=== PATIENT | female | born 1995 | race African-American/Black ===

== ENCOUNTER 2020-03-09 11:33 | Emergency (ER) | payer SELFPAY ==
[~2020-03-09] VITALS: Ht 167.6 cm; Wt 59.0 kg
[2020-03-09] MEDS ORDERED: KETOROLAC 30MG/ML VIAL IM ONE (12:00)
[2020-03-09 13:40] VITALS: BP 105/73
== END 2020-03-09 13:43 | disposition home or self-care (01) ==
LOC: ER 12:33
DX: J03.90 Acute tonsillitis, unspecified (principal)
CPT/HCPCS: 81025; 87070; 87430; 96372; 99283; J1885

== ENCOUNTER 2021-10-05 12:51 | Emergency (ER) | payer MEDICAID ==
[~2021-10-05] VITALS: Ht 165.1 cm; Wt 91.0 kg
[2021-10-05 12:55] VITALS: BP 118/74
== END 2021-10-05 13:36 | disposition home or self-care (01) ==
LOC: ER 12:58
DX: Z53.21 Procedure and treatment not carried out due to patient leaving prior to being seen by health care provider (principal)

== ENCOUNTER 2023-02-21 23:08 | Emergency (ER) | payer MEDICAID ==
[~2023-02-21] VITALS: Ht 167.6 cm; Wt 71.4 kg
[2023-02-21 23:29] VITALS: BP 120/80; O2SAT 100
[2023-02-21 23:59] LABS: CLARITY URINE CLEAR (CLEAR); COLOR URINE YELLOW (YELLOW); GLUCOSE URINE NEGATIVE (NEGATIVE); KETONES URINE NEGATIVE (NEGATIVE); LEUKOCYTE ESTERASE URINE NEGATIVE (NEGATIVE); NITRITE URINE NEGATIVE (NEGATIVE); OCCULT BLOOD URINE NEGATIVE (NEGATIVE); PH URINE 6.5 (4.5-8.0); PROTEIN URINE 1+ (NEGATIVE); SPECIFIC GRAVITY URINE 1.006 (1.005-1.030); UROBILINOGEN URINE 0.2 E.U./dL (0.2-1.0)
[2023-02-22 00:03] LABS: BACTERIA URINE NONE SEEN; YEAST URINE NONE SEEN
[2023-02-22] MEDS ORDERED: LIDOCAINE HCL 1% 20ML VIAL (Pyxis) INJ INFIL ONE (01:15)
[2023-02-22] MEDS ORDERED: TETANUS, DIPHTHERIA, PERTUSSIS VAC/PF 0.5ML (>10YR OLD) IM ONE (01:15)
[2023-02-22] MEDS ORDERED: KETOROLAC 30MG/ML VIAL IM ONE (01:30)
[2023-02-22] MEDS ORDERED: MUPI15CR11 TP (02:33)
[2023-02-22 02:38] VITALS: PULSE 101; RESP 20; TEMP 98.2
[2023-02-22 02:46] LABS: SQUAMOUS EPITHELIAL CELL URINE FEW /lpf (RARE/1+)
[2023-02-22 02:48] LABS: RBC URINE 0-2 /hpf (0-2); WBC URINE 0-2 /hpf (0-2)
== END 2023-02-22 02:41 | disposition home or self-care (01) ==
LOC: ER 23:08
DX: S61.411A Laceration without foreign body of right hand, initial encounter (principal); M79.89 Other specified soft tissue disorders; X58.XXXA Exposure to other specified factors, initial encounter; Y93.89 Activity, other specified; Y92.89 Other specified places as the place of occurrence of the external cause; Y99.8 Other external cause status
CPT/HCPCS: 81003; 81025; 93005; 99285; 73130; 90715; 90471; 96372; J1885; J3490; Z7610 ×3